=== PATIENT | female | born 1985 | race Caucasian/White ===

== ENCOUNTER 2022-06-17 23:49 | Emergency (ER) | payer SELFPAY ==
[~2022-06-17] VITALS: Ht 160 cm; Wt 82.0 kg
[2022-06-17 23:56] VITALS: BP 146/101
[2022-06-18] VITALS: BP 151/91
[2022-06-18] MEDS ORDERED: VOLTAREN75 MG PO (00:13)
[2022-06-18] MEDS ORDERED: TRAMADOL HCL50 MG PO (00:13)
[2022-06-18] MEDS ORDERED: AMOXICILLIN500 MG PO (00:13)
[2022-06-18 00:30] VITALS: BP 143/92
[2022-06-18 00:51] VITALS: BP 146/92
== END 2022-06-18 00:55 | disposition home or self-care (01) | DRG 159 ==
LOC: ED 23:49
DX: K02.9 Dental caries, unspecified (principal); K04.7 Periapical abscess without sinus

== ENCOUNTER 2022-10-14 17:52 | Emergency (ER) | payer SELFPAY ==
[~2022-10-14] VITALS: Ht 160 cm; Wt 81.8 kg
[~2022-10-14 17:52] MED LIST: AMOXICILLIN500 MG PO; TRAMADOL HCL50 MG PO; VOLTAREN75 MG PO
[2022-10-14 18:09] VITALS: BP 144/92
[2022-10-14 18:16] VITALS: BP 129/65
[2022-10-14 18:30] VITALS: BP 108/71
[2022-10-14 18:34] LABS: URINE BILIRUBIN - DIPSTICK NEGATIVE (NEGATIVE); URINE BLOOD DIPSTICK MODERATE (NEGATIVE); URINE COLOR YELLOW; URINE GLUCOSE - DIPSTICK NEGATIVE (NEGATIVE); URINE KETONE NEGATIVE (NEGATIVE); URINE LEUK ESTERASE NEGATIVE (NEGATIVE); URINE PROTEIN - DIPSTICK 100 mg/dL (NEG-TRACE); URINE SPECIFIC GRAVITY >=1.030; URINE UROBILINOGEN - DIPSTICK 0.2 E.U./dL (0.2)
[2022-10-14 18:35] LABS: URINE NITRITE - DIPSTICK NEGATIVE (Negative)
[2022-10-14 18:39] LABS: IMMATURE GRANULOCYTES 0.2 % (0.0-5.0); MEAN CORPUSCULAR HGB CONC 34.9 g/dL CAL (32.0-36.0); NEUT# 5.51 thou/uL (2.00-7.15); RED BLOOD COUNT 4.7 mill/uL (4.20-5.60); RED CELL DISTRI WIDTH 11.9 % (11.5-15.5)
[2022-10-14 18:40] LABS: HEMATOCRIT 40.4 % (37.0-47.0); HEMOGLOBIN 14.1 g/dl (12.0-16.0)
[2022-10-14 18:40] LABS: URINE SQUAMOUS EPITHELIAL CELL MANY EPI/hpf (0-FEW); URINE WBC 0-2 WBC/hpf (0-5)
[2022-10-14 18:45] VITALS: BP 116/67
[2022-10-14 18:50] LABS: ALBUMIN 4.4 g/dL (3.2-5.0); ALKALINE PHOSPHATASE 83 u/l (38-126); AMYLASE 54 u/l (30-110); ANION GAP 12 (6-22 (CALC)); BILIRUBIN, TOTAL 0.3 mg/dL (0.0-1.4); BUN 14 mg/dL (7-17); BUN/CREATININE RATIO 22 (12-20 (CALC)); CARBON DIOXIDE 24 mmol/l (22-30); CHLORIDE 107 mmol/l (95-108); CREATININE 0.6 mg/dL (0.5-1.0); GFR FOR AFR.AMER. > 60 ML/MIN (>=60 (CALC)); GFR OTHER RACES > 60 ML/MIN (>=60 (CALC)); LIPASE 30 u/l (23-300); POTASSIUM 3.7 mmol/l (3.5-5.1); SGOT/AST 66 u/l (14-36); SODIUM 138 mmol/l (137-146); TOTAL PROTEIN 7.6 g/dL (6.3-8.2)
[2022-10-14 19:00] VITALS: BP 117/66
[2022-10-14] MEDS ORDERED: ONDANSETRON4 MG PO (20:53)
[2022-10-14] MEDS ORDERED: DICYCLOMINE HCL10 MG PO (20:53)
[2022-10-14 21:01] VITALS: BP 117/66
== END 2022-10-14 21:07 | disposition home or self-care (01) | DRG 392 ==
LOC: ED 17:52
PROVIDERS: Emergency Medicine
DX: K58.9 Irritable bowel syndrome, unspecified (principal); F17.210 Nicotine dependence, cigarettes, uncomplicated
CPT/HCPCS: Q9967

== ENCOUNTER 2023-02-02 04:06 | Emergency (ER) | payer SELFPAY ==
[~2023-02-02] VITALS: Ht 160 cm; Wt 81.8 kg
[~2023-02-02 04:06] MED LIST changes: +DICYCLOMINE HCL10 MG PO; +ONDANSETRON4 MG PO
[2023-02-02 06:03] LABS: BASO% 0.3 % (0-3); EOS% 2.1 % (0-8); HEMATOCRIT 39.7 % (37.0-47.0); HEMOGLOBIN 13.4 g/dl (12.0-16.0); IMMATURE GRANULOCYTES 0.5 % (0.0-5.0); LYMPH% 33.7 % (15-41); MEAN CELL VOLUME 87.4 fL CALC (80.0-100.0); MEAN CORPUSCULAR HGB 29.5 pG CALC (26.0-32.0); MEAN CORPUSCULAR HGB CONC 33.8 g/dL CAL (32.0-36.0); MONO% 8.3 % (2-13); NEUT# 3.44 thou/uL (2.00-7.15); NEUT% 55.1 % (42-76); RED BLOOD COUNT 4.54 mill/uL (4.20-5.60); RED CELL DISTRI WIDTH 12.1 % (11.5-15.5)
[2023-02-02 06:05] LABS: ALBUMIN 3.8 g/dL (3.2-5.0); ALKALINE PHOSPHATASE 83 u/l (38-126); ANION GAP 8 (6-22 (CALC)); BUN 13 mg/dL (7-17); BUN/CREATININE RATIO 20 (12-20 (CALC)); CARBON DIOXIDE 25 mmol/l (22-30); CHLORIDE 110 mmol/l (95-108); CREATININE 0.7 mg/dL (0.5-1.0); GFR FOR AFR.AMER. > 60 ML/MIN (>=60 (CALC)); GFR OTHER RACES > 60 ML/MIN (>=60 (CALC)); SGOT/AST 21 u/l (14-36); SODIUM 139 mmol/l (137-146); TOTAL PROTEIN 6.5 g/dL (6.3-8.2)
[2023-02-02] MEDS ORDERED: SPRINTEC 2828 DAY PO (06:17)
[2023-02-02] MEDS ORDERED: PROVERA10 MG PO (06:17)
[2023-02-02 06:22] VITALS: BP 169/116
== END 2023-02-02 07:01 | disposition home or self-care (01) | DRG 761 ==
LOC: ED 04:06
PROVIDERS: Family Medicine
DX: N92.1 Excessive and frequent menstruation with irregular cycle (principal)

== ENCOUNTER 2023-05-20 00:14 | Emergency (ER) | payer SELFPAY ==
[~2023-05-20] VITALS: Ht 160 cm; Wt 100.0 kg
[~2023-05-20 00:14] MED LIST changes: +PROVERA10 MG PO; +SPRINTEC 2828 DAY PO
[2023-05-20] MEDS ORDERED: NAPROXEN500 MG PO (00:30)
[2023-05-20] MEDS ORDERED: AMOXICILLIN500 MG PO (00:30)
[2023-05-20 00:44] VITALS: BP 144/80
== END 2023-05-20 00:44 | disposition home or self-care (01) | DRG 159 ==
LOC: ED 00:14
DX: K04.7 Periapical abscess without sinus (principal); K02.9 Dental caries, unspecified; F17.210 Nicotine dependence, cigarettes, uncomplicated